=== PATIENT | female | born 1980 | race Caucasian/White ===

== ENCOUNTER 2016-09-24 01:43 | Emergency (ER) | payer OTHER ==
[~2016-09-24] VITALS: Ht 170.2 cm; Wt 68.0 kg
[~2016-09-24 01:43] MED LIST: BACTRIM DS TABL1 TAB PO; IBUPROFEN PO; ROXICODONE5 MG DOB
== END 2016-09-24 04:15 | disposition home or self-care (01) ==
LOC: CED 01:43
DX: F11.129 Opioid abuse with intoxication, unspecified (principal); F17.210 Nicotine dependence, cigarettes, uncomplicated; Z88.5 Allergy status to narcotic agent
CPT/HCPCS: 99283